=== PATIENT | male | born 1945 | race Hispanic/Latino ===

== ENCOUNTER 2016-10-27 11:36 | Day surgery (SDC) | payer SELFPAY ==
[2016-10-27 11:44] VITALS: BMI 23.9
[2016-10-27 12:04] LABS: HEMOGLOBIN 14.8 g/dL (12.0-18.0); MEAN CELL VOLUME 91.3 fl (80.0-94.0); MEAN CORPUSCULAR HEMOGLOBIN 32.3 pg (27.0-31.0); MEAN CORPUSCULAR HGB CONC 35.3 g/dL (33.0-37.0); RBC 4.59 Mil/uL (4.40-5.90); RED CELL DISTRIBUTION WIDTH 15.5 % (11.5-14.5); WHITE BLOOD COUNT 7.7 K/uL (4.8-10.8)
[2016-10-27 12:09] VITALS: RESP 18
[2016-10-27 12:51] LABS: INR 1.1 (0.9-1.2); PARTIAL THROMBOPLASTIN TIME 31.5 Seconds (25.6-37.1)
[2016-10-27] MEDS ORDERED: Lidocaine 1% Inj (20ml) ONE (14:01)
--- NOTE | 2016-10-27 14:11 | CP.SDSHP ---
Same Day Surgery H & P - History Proposed Procedure: US guided FNA of left thyroid nodule Pre-Op Diagnosis: left thyroid nodule - Allergies Allergies: Allergies No Known Allergies Allergy (Verified 12/18/15 11:10) - Physical Exam Vital Signs: Vital Signs 10/27/16 10/27/16 12:06 12:13 Temperature 98.6 F Pulse Rate 73 73 Respiratory 18 Rate Blood Pressure 138/78 O2 Sat by Pulse 96 Oximetry Mental Status: Alert & Oriented x3 Neuro: WNL Heart: WNL Lungs: WNL - Impression Impression: Pt with a 4.5 cm solid left thyroid mass. Plan US guided FNA. Pt. Evaluated Today:Candidate for Anesthesia & Procedure: No Short Stay Discharge - Short Stay Discharge Admitting Diagnosis/Reason for Visit: LT THYROID NODULE Referrals: Familia Samuels MD [Primary Care Provider] -
--- NOTE | 2016-10-27 14:12 | PCM.SURG1 ---
Surgeon's Initial Post Op Note - Surgeon's Notes Surgeon: Aiden Latham MD Environmental Safety Specialist: NONE Type of Anesthesia: Local Pre-Operative Diagnosis: Thyroid nodule Operative Findings: US showed a large left thyroid mass 4.5 cm, soid. Post-Operative Diagnosis: Thyroid nodule Operation Performed: US guided FNA of left thyroid nodule Specimen/Specimens Removed: 25 g FNA x 4 Estimated Blood Loss: EBL {In ML}: 0 Drains Used: No Drains Post-Op Condition: Good Date of Surgery/Procedure: 10/27/16 Time of Surgery/Procedure: 14:10
[2016-10-27 14:27] VITALS: BP 146/92; PULSE 65
[2016-10-27 14:37] VITALS: TEMP 97.8; O2SAT 97
--- NOTE | 2016-10-27 14:47 | US ---
PROCEDURE: Date of Procedure: 10/27/2016 PROCEDURE: 1. Ultrasound guided FNA of left thyroid nodule, CPT 23267 2. Ultrasound guidance for FNA, 43197 Medications: 3cc 1% Lidocaine HISTORY: Enlarged left thyroid nodule. TECHNIQUE: Following informed consent and procedure time-out, a limited ultrasound patient's neck confirmed the presence of a 4.5 cm complex left thyroid nodule which is predominantly solid. After the patient's neck was prepped and draped in the usual sterile fashion, the skin was anesthetized with 1% lidocaine. Ultrasound-guided fine needle aspiration was then performed of the dominant left thyroid nodule. A total of 4 passes were made into the nodule with 25 gauge needle under ultrasound guidance. The FNA specimen was sent for routine pathology. Post biopsy ultrasound showed no hematoma. IMPRESSION: Ultrasound-guided FNA of the dominant left thyroid nodule.
== END 2016-10-27 14:50 | disposition home or self-care (01) ==
LOC: H.OPSURG 11:36
PROVIDERS: ATTEND Specialist
DX: E04.1 Nontoxic single thyroid nodule (principal)

== ENCOUNTER 2017-04-21 12:37 | Emergency (ER) | payer SELFPAY ==
[2017-04-21 12:38] VITALS: BMI 23.9
[2017-04-21 12:58] VITALS: RESP 16; TEMP 98; O2SAT 100
--- NOTE | 2017-04-21 13:05 | ED PDOC ---
HPI: Abdomen Time Seen by Provider: 04/21/17 12:47 Chief Complaint (Nursing): GI Problem Chief Complaint (Provider): Vomiting and diarrhea History Per: Patient Additional Complaint(s): The patient is a 72 y/o male with a history of HIV (asymptomatic, not AIDS; diagnosed in 1995), HTN, and left nephrostomy tube presented to the ED w/ complaints of constipation x 2 days. Past Medical History Reviewed: Nursing Documentation, Vital Signs Vital Signs: Last Vital Signs Temp 98 F 04/21/17 12:56 Pulse 75 04/21/17 19:28 Resp 16 04/21/17 19:28 BP 134/75 04/21/17 19:28 Pulse Ox 100 04/21/17 19:28 - Medical History PMH: Depression, Diabetes, HIV, HTN, Hypercholesterolemia, Kidney Stones - Surgical History Surgical History: Cholecystectomy, Tonsillectomy - Family History Family History: States: CAD, Diabetes - Social History Current smoker - smoking cessation education provided: No Alcohol: None Drugs: Denies - Home Medications Home Medications: Ambulatory Orders Medication Instructions Recorded Abacavir/Dolutegravir/Lamivudi 1 tab PO DAILY 12/11/15 [Triumeq Tablet] Atorvastatin Calcium [Lipitor] 10 mg PO HS 12/11/15 Cholecalciferol [Vitamin D 1000 IU] 1 tab PO DAILY 12/11/15 Lysine [l-Lysine] 1 tab PO DAILY 12/11/15 Pregabalin [Lyrica] 75 mg PO BID 12/11/15 Cephalexin [cephalexin] 500 mg PO BID #14 cap 04/21/17 Tamsulosin [Flomax] 0.4 mg PO DAILY #10 cap 04/21/17 oxyCODONE/Acetaminophen [Percocet 1 ea PO Q6 PRN #10 tab 04/21/17 5/325 mg Tab] - Allergies Allergies/Adverse Reactions: Allergies Allergy/AdvReac Type Severity Reaction Status Date / Time No Known Allergies Allergy Verified 12/18/15 11:10 Review of Systems ROS Statement: Except As Marked, All Systems Reviewed And Found Negative Gastrointestinal: Positive for: Abdominal Pain Physical Exam - Reviewed Nursing Documentation Reviewed: Yes Vital Signs Reviewed: Yes - Physical Exam Appears: Positive for: Well, Non-toxic, No Acute Distress Head Exam: Positive for: ATRAUMATIC, NORMAL INSPECTION, NORMOCEPHALIC Skin: Positive for: Normal Color, Warm, DRY Eye Exam: Positive for: EOMI, Normal appearance, PERRL ENT: Positive for: Normal ENT Inspection Neck: Positive for: Normal, Painless ROM Cardiovascular/Chest: Positive for: Regular Rate, Rhythm Respiratory: Positive for: CNT, Normal Breath Sounds Gastrointestinal/Abdominal: Positive for: Normal Exam, Bowel Sounds, Soft Back: Positive for: Normal Inspection Extremity: Positive for: Normal ROM Neurologic/Psych: Positive for: Alert, Oriented - Laboratory Results Result Diagrams: 04/21/17 15:29 04/21/17 15:29 - ECG O2 Sat by Pulse Oximetry: 100 Medical Decision Making Medical Decision Making: IV access established and treatment initiated with IVF, Zofran and Toradol Labs resulted and reviewed with Pt who demonstrated full understanding IV Rocephin started for urine findings CT ordered as well. IMPRESSION: Right-sided perinephric stranding. 5 mm distal right ureteral calculus with proximal hydroureteronephrosis. No left-sided hydronephrosis or obstructing calculus identified. Nonobstructing left renal calculus. Bilateral low-density renal lesions appear consistent with cysts. Moderate constipation. Additional findings as above. Disposition - Clinical Impression Clinical Impression: Renal colic, UTI (urinary tract infection), Hydronephrosis, Renal insufficiency - Patient ED Disposition Is Patient to be Admitted: No - Disposition Disposition: Routine/Home Disposition Time: 15:00 Condition: STABLE Prescriptions: Cephalexin [cephalexin] 500 mg PO BID #14 cap oxyCODONE/Acetaminophen [Percocet 5/325 mg Tab] 1 ea PO Q6 PRN #10 tab PRN Reason: Pain, Severe (8-10) Tamsulosin [Flomax] 0.4 mg PO DAILY #10 cap Instructions: Renal Colic (ED), Hydronephrosis (ED) Forms: [email or web address] (Lithuanian)
--- NOTE | 2017-04-21 13:39 | RAD ---
HISTORY: constipation COMPARISON: No prior. FINDINGS: BOWEL: No evidence bowel obstruction. Minimal retained feces. No hepatic or splenic enlargement. Surgical clips in gallbladder fossa status post cholecystectomy. BONES: Normal. OTHER FINDINGS: None. IMPRESSION: No evidence of bowel obstruction. No significant retained feces.
[2017-04-21] MEDS ORDERED: Iohexol 240 (50 ml) PO ONE (15:07)
[2017-04-21] MEDS ORDERED: Iohexol 240 (50 ml) ONE (15:20)
[2017-04-21 15:45] LABS: BASO % 0.1 % (0.0-2.0); EOS % 0.1 % (0.0-4.0); HEMOGLOBIN 15.7 g/dL (12.0-18.0); LYMPH % 11.3 % (20.0-40.0); MEAN CELL VOLUME 93.5 fl (80.0-94.0); MEAN CORPUSCULAR HGB CONC 35.3 g/dL (33.0-37.0); MONO # 0.8 K/uL (0.0-0.8); NEUT % 79.5 % (50.0-75.0); RBC 4.74 Mil/uL (4.40-5.90); RED CELL DISTRIBUTION WIDTH 13.9 % (11.5-14.5); WHITE BLOOD COUNT 8.8 K/uL (4.8-10.8)
--- NOTE | 2017-04-21 15:48 | RAD ---
PROCEDURE: CHEST RADIOGRAPH, 1 VIEW HISTORY: abdominal pain COMPARISON: Chest radiograph dated 02/06/2016. FINDINGS: LUNGS: Clear. PLEURA: No pneumothorax or pleural fluid seen. CARDIOVASCULAR: Atherosclerotic aortic calcifications. Cardiomediastinal silhouette within normal limits. OSSEOUS STRUCTURES: Unchanged. VISUALIZED UPPER ABDOMEN: Normal. OTHER FINDINGS: None. IMPRESSION: No active disease.
[2017-04-21 15:51] LABS: ALT/SGPT 39 U/L (21-72); AMYLASE 75 U/L (30-110); AST/SGOT 32 U/L (17-59); BLOOD UREA NITROGEN 23 mg/dl (9-20); GFR AFRICAN-AMERICAN 31; GFR NON-AFRICAN AMERICAN 26; LIPASE 123 U/L (23-300)
[2017-04-21 15:54] LABS: ALB/GLOB RATIO 1.4 (1.0-2.1)
[2017-04-21] MEDS ORDERED: Sodium Chloride 0.9% 1,000 ML IV STA (16:28)
[2017-04-21 17:09] LABS: URINE BACTERIA RARE (<OCC); URINE BILIRUBIN NEGATIVE (NEGATIVE); URINE BLOOD LARGE (NEGATIVE); URINE CLARITY CLOUDY (Clear); URINE GLUCOSE (UA) 50 mg/dL (Normal); URINE LEUKOCYTE ESTERASE MOD Leu/uL (Negative); URINE NITRATE NEGATIVE (NEGATIVE); URINE PROTEIN 30 mg/dL (NEGATIVE); URINE UROBILINOGEN 0.2-1.0 mg/dL (0.2-1.0)
[2017-04-21 17:12] LABS: URINE COLOR LIGHT BROWN (YELLOW)
--- NOTE | 2017-04-21 18:00 | CT ---
PROCEDURE: CT Abdomen and Pelvis without IV contrast. HISTORY: r/o obstruction COMPARISON: CT abdomen pelvis without IV contrast performed 12/11/15 TECHNIQUE: Contiguous axial images of the abdomen and pelvis. Oral contrast was administered. No IV contrast given. Coronal and Sagittal reformats generated and reviewed. Radiation dose: Total exam DLP = 824.13 mGy-cm. This CT exam was performed using one or more of the following dose reduction techniques: Automated exposure control, adjustment of the mA and/or kV according to patient size, and/or use of iterative reconstruction technique. FINDINGS: There is limited evaluation of the solid organs without the administration of IV contrast. LOWER THORAX: No visible consolidation, pleural effusion, or pneumothorax. LIVER: Suspect dystrophic calcification, medial margin right hepatic lobe. GALLBLADDER AND BILE DUCTS: Cholecystectomy. PANCREAS: Unremarkable unenhanced appearance. SPLEEN: Tiny splenic calcifications, likely granuloma. ADRENALS: Unremarkable unenhanced appearance. KIDNEYS AND URETERS: Right-sided perinephric stranding. 5 mm distal right ureteral calculus (series 3, image 53) with proximal hydroureteronephrosis. No left-sided hydronephrosis or obstructing calculus identified. Nonobstructing left renal calculus. Bilateral low-density renal lesions appear consistent with cysts. BLADDER: Under distended urinary bladder appears otherwise grossly unremarkable. REPRODUCTIVE: The prostate gland measures approximately 3.7 x 3.9 cm. APPENDIX: The appendix is not identified. BOWEL: The stomach is nondistended. The bowel loops appear within normal limits of caliber without evidence of intestinal obstruction. Moderate constipation. PERITONEUM: No significant free fluid. No definite free air. LYMPH NODES: No bulky lymphadenopathy identified. VASCULATURE: No aortic aneurysm. BONES: Degenerative changes. OTHER FINDINGS: Bilateral fat containing inguinal hernias. IMPRESSION: Right-sided perinephric stranding. 5 mm distal right ureteral calculus with proximal hydroureteronephrosis. No left-sided hydronephrosis or obstructing calculus identified. Nonobstructing left renal calculus. Bilateral low-density renal lesions appear consistent with cysts. Moderate constipation. Additional findings as above.
[2017-04-21 19:28] VITALS: BP 134/75; PULSE 75
[2017-04-21] MEDS ORDERED: cefTRIAXone IV 1 gm in Dextros 50 ML IVPB ONE (19:40)
[2017-04-21] MEDS ORDERED: cefTRIAXone IV 1 gm in Dextros 50 ML IVPB STA (19:47)
--- NOTE | 2017-04-22 10:54 | CARD ---
APPROVED REPORT EKG Measurement Heart [id number] <Conclusion> Normal sinus rhythm Left axis deviation Junctional ST depression, probably normal Abnormal ECG
== END 2017-04-21 20:52 | disposition home or self-care (01) ==
LOC: H.ER 12:37
DX: N39.0 Urinary tract infection, site not specified (principal); N23 Unspecified renal colic; N13.2 Hydronephrosis with renal and ureteral calculous obstruction; E11.9 Type 2 diabetes mellitus without complications; E78.00 Pure hypercholesterolemia, unspecified; I10 Essential (primary) hypertension; K59.00 Constipation, unspecified; Z86.59 Personal history of other mental and behavioral disorders; Z87.442 Personal history of urinary calculi; Z82.49 Family history of ischemic heart disease and other diseases of the circulatory system
CPT/HCPCS: 71045; 74018; 74176; 80053; 81003; 82150; 83690; 84484; 85025; 93005; 96361; 96365; 96375; 99284; J0696; J1885; J2405; J7040; Q9966